=== PATIENT | female | born 1970 | race Caucasian/White ===

== ENCOUNTER 2020-12-25 19:46 | Emergency (ER) | payer BC ==
[2020-12-25 21:23] LABS: URINE APPEARANCE CLOUDY; URINE BILIRUBIN NEGATIVE (NEGATIVE); URINE BLOOD 250 ery/uL (NEGATIVE); URINE COLOR YELLOW; URINE GLUCOSE NEGATIVE (NEGATIVE); URINE KETONE NEGATIVE (NEGATIVE); URINE LEUKOCYTE ESTERASE 2+ (NEGATIVE); URINE NITRATE NEGATIVE (NEGATIVE); URINE PROTEIN(semi-quant) 1+ mg/dL (NEGATIVE); URINE UROBILINOGEN NORMAL (NORMAL)
[2020-12-25 21:24] LABS: URINE MUCUS PRESENT (NOT PRESENT); URINE WBC >50 /hpf (0-3)
[2020-12-25 21:32] LABS: POTASSIUM 3.7 mmol/L (3.5-5.1)
[2020-12-25 21:33] LABS: CALCIUM 9.3 mg/dL (8.3-10.5)
[2020-12-25 21:36] LABS: TOTAL BILIRUBIN 0.9 mg/dL (0.2-1.2)
[2020-12-25 21:47] LABS: BASO # 0.03 (0.02-0.10); EOS # 0.09 (0.04-0.40); EOS % 0.7 % (1.0-5.0); HEMATOCRIT 40.4 % (37.0-47.0); HEMOGLOBIN 13.2 g/dL (12.5-16.0); MEAN CELL VOLUME 82 fl (78-100); MEAN CORPUSCULAR HEMOGLOBIN 27 pg (27-31); MEAN CORPUSCULAR HGB CONC 33 g/dL (33-37); MEAN PLATELET VOLUME 9.1 fl (7.4-10.4); MONO # 0.91 (0.20-0.80); NEU # 9.36 (1.40-6.50); PLATELET COUNT 416 K/mm3 (130-400); RED BLOOD COUNT 4.94 M/mm3 (4.10-5.30); WHITE BLOOD COUNT 12.5 K/mm3 (4.8-10.8)
[2020-12-25] MEDS ORDERED: CEPHALEXIN500 M1 PO (22:01)
[2020-12-25 22:19] VITALS: BP 154/104
== END 2020-12-25 22:19 | disposition home or self-care (01) ==
LOC: ED 19:46
PROVIDERS: Family Medicine
DX: N39.0 Urinary tract infection, site not specified (principal); Z90.49 Acquired absence of other specified parts of digestive tract; Z90.710 Acquired absence of both cervix and uterus
CPT/HCPCS: J0696

== ENCOUNTER → 2021-01-05 | Outpatient (CLI) | payer BC ==
[~2021-01-05] MED LIST: CEPHALEXIN500 M1 PO
[2021-01-05 17:07] LABS: BASO # 0.05 (0.02-0.10); EOS # 0.22 (0.04-0.40); EOS % 2.4 % (1.0-5.0); HEMATOCRIT 41.3 % (37.0-47.0); HEMOGLOBIN 13.2 g/dL (12.5-16.0); LYMPH# 2.68 (1.50-4.00); MEAN CELL VOLUME 84 fl (78-100); MEAN CORPUSCULAR HEMOGLOBIN 27 pg (27-31); MEAN CORPUSCULAR HGB CONC 32 g/dL (33-37); MEAN PLATELET VOLUME 8.9 fl (7.4-10.4); MONO # 0.72 (0.20-0.80); NEU # 5.59 (1.40-6.50); PLATELET COUNT 385 K/mm3 (130-400); RED BLOOD COUNT 4.93 M/mm3 (4.10-5.30); WHITE BLOOD COUNT 9.3 K/mm3 (4.8-10.8)
[2021-01-05 17:17] LABS: CALCIUM 9.4 mg/dL (8.3-10.5)
[2021-01-05 17:20] LABS: TOTAL BILIRUBIN 0.6 mg/dL (0.2-1.2)
[2021-01-05 19:23] LABS: URINE APPEARANCE HAZY; URINE BILIRUBIN NEGATIVE (NEGATIVE); URINE BLOOD TRACE (NEGATIVE); URINE COLOR YELLOW; URINE GLUCOSE NEGATIVE (NEGATIVE); URINE KETONE NEGATIVE (NEGATIVE); URINE LEUKOCYTE ESTERASE NEGATIVE (NEGATIVE); URINE MUCUS PRESENT (NOT PRESENT); URINE NITRATE NEGATIVE (NEGATIVE); URINE PROTEIN(semi-quant) 1+ mg/dL (NEGATIVE); URINE UROBILINOGEN NORMAL (NORMAL); URINE WBC 0-1 /hpf (0-3)
== END ==
LOC: LAB 16:48
PROVIDERS: Physician Assistant
DX: Z00.00 Encounter for general adult medical examination without abnormal findings (principal); E03.9 Hypothyroidism, unspecified; E78.5 Hyperlipidemia, unspecified; R39.15 Urgency of urination

== ENCOUNTER → 2021-01-26 | Outpatient (CLI) | payer BC | LOC: MAMMO 13:00 | DX: Z12.31 Encounter for screening mammogram for malignant neoplasm of breast (principal) ==